=== PATIENT | female | born 1955 | race Hispanic/Latino ===

== ENCOUNTER → 2018-10-20 | Outpatient (CLI) | payer BC | END | disposition home or self-care (01) | LOC: RAH 15:20 | PROVIDERS: ATTEND Family Medicine | DX: Z12.31 Encounter for screening mammogram for malignant neoplasm of breast (principal) | CPT/HCPCS: 77067 ==

== ENCOUNTER → 2018-11-17 | Outpatient (CLI) | payer BC | END | disposition home or self-care (01) | LOC: RAH 14:42 | PROVIDERS: ATTEND Family Medicine | DX: N63.11 Unspecified lump in the right breast, upper outer quadrant (principal) | CPT/HCPCS: 76641 ==

== ENCOUNTER → 2019-04-28 | Outpatient (CLI) | payer BC | END | disposition home or self-care (01) | LOC: OIH 14:36 | PROVIDERS: ATTEND Family Medicine | DX: Z01.818 Encounter for other preprocedural examination (principal); M41.84 Other forms of scoliosis, thoracic region; M47.814 Spondylosis without myelopathy or radiculopathy, thoracic region; Q25.46 Tortuous aortic arch | CPT/HCPCS: 71046 ==